=== PATIENT | male | born 1940 | race Caucasian/White ===

== ENCOUNTER 2022-05-06 20:07 | Inpatient (IN) | payer MEDICARE, OTHER ==
[~2022-05-06] VITALS: Ht 170.2 cm; Wt 62.6 kg
--- NOTE | 2022-05-06 20:25 | NUR ---
JOSE A FROM [facility] AT [facility]. PATIENT ALERT AND ORIENTED X2. IN GOWN AND IN BED 12 ON MONITOR AND POX, SITTER AT BEDSIDE. PATIENT WAITING FOR MD NGUYEN.
--- NOTE | 2022-05-06 20:35 | NUR ---
[facility] RECEIVING CLERK AT BEDSIDE
[2022-05-06] MEDS ORDERED: LIDOCAINE 2% JEL UROJET 10 ML MM ONE (21:07)
--- NOTE | 2022-05-06 21:11 | NUR ---
URINE COLLECTED AND SENT TO LAB
[2022-05-06 21:22] LABS: BASOPHILS % (AUTO) 0.4 % (0.0-2.0); EOSINOPHILS % (AUTO) 1.7 % (0.0-6.0); HEMATOCRIT 32 % (39-51); HEMOGLOBIN 10.9 g/dL (13.5-17.5); LYMPHOCYTES % (AUTO) 23.5 % (20.0-44.0); MEAN CORPUSCULAR HGB CONC 34 g/dl (31.0-36.0); MEAN CORPUSCULAR VOLUME 97 fL (80-96); MONOCYTES # (AUTO) 0.8 K/uL (0.1-1.30); MONOCYTES % (AUTO) 8.9 % (2.0-12.0); NEUTROPHILS # (AUTO) 5.5 K/uL (1.8-8.9); NEUTROPHILS % (AUTO) 65.5 % (43.0-81.0); PLATELET COUNT (AUTO) 222 K/uL (150-450); RED BLOOD CELL COUNT(AUTO) 3.31 MIL/uL (4.5-6.0); WHITE BLOOD COUNT (AUTO) 8.4 K/uL (4.3-11.0)
[2022-05-06 21:34] LABS: BILIRUBIN,URINE NEGATIVE (NEGATIVE); COLOR,URINE YELLOW (YELLOW); LEUKOCYTE ESTERASE ,URINE LARGE (NEGATIVE); NITRITE, URINE NEGATIVE (NEGATIVE); PH,URINE 7.5 (5.0-8.0); PROTEIN,URINE TRACE mg/dl (NEGATIVE); UGLUCOSE NEGATIVE (NEGATIVE); UROBILINOGEN,URINE 0.2 EU/dL (0.2)
[2022-05-06 21:41] LABS: CALCIUM, SERUM 8.9 mg/dL (8.5-10.1); CARBON DIOXIDE 33 mmol/L (21-32); CHLORIDE 105 mmol/L (98-107); CREATININE 1.2 mg/dL (0.6-1.3); GLUCOSE 103 mg/dL (74-106); POTASSIUM 4.2 mmol/L (3.5-5.1); SODIUM SERUM 141 mmol/L (136-145); UREA NITROGEN, BLOOD 32 mg/dL (7-18)
--- NOTE | 2022-05-06 21:42 | NUR ---
COVID SWAB DONE AND SENT TO LAB
[2022-05-06 21:44] LABS: BACTERIA,URINE 3+ /HPF (None Seen); WBC,URINE 81-100 /HPF (0-3)
[2022-05-06 21:45] LABS: ALANINE AMINOTRANSFERASE 32 U/L (12-78); ALBUMIN 3.1 g/dL (3.4-5.0); ALCOHOL, BLOOD < 3 mg/dL (0-0); ALKALINE PHOSPHATASE 49 U/L (46-116); ASPARTATE AMINOTRANSFERASE 26 U/L (15-37); BILIRUBIN,DIRECT 0.1 mg/dL (0.0-0.2); BILIRUBIN,TOTAL 0.2 mg/dL (0.2-1.0); TOTAL PROTEIN, SERUM 6.8 g/dL (6.4-8.2)
[2022-05-06] MEDS ORDERED: CIPROFLOXACIN IV RTU 200 ML IV ONE (21:59)
[2022-05-06] MEDS ORDERED: Z GUARD REMEDY 4 OZ OINT TP PRN (22:00)
[2022-05-06] MEDS ORDERED: ACETAMINOPHEN 325 MG TABLET PO PRN (22:00)
[2022-05-06] MEDS ORDERED: ZOLPIDEM TARTRATE 5 MG TABLET PO PRN (22:00)
[2022-05-06] MEDS ORDERED: MAG HYDROX/AL HYDROX/SIMETH 30 ML UDC PO PRN (22:00)
[2022-05-06] MEDS ORDERED: MAGNESIUM HYDROXIDE 30 ML UDC PO PRN (22:00)
[2022-05-06] MEDS ORDERED: ONDANSETRON HCL/PF 4 MG/2 ML VIAL IVP PRN (22:00)
[2022-05-06] MEDS ORDERED: DONE5TAB7 PO (22:04)
[2022-05-06] MEDS ORDERED: ASPI-1169 PO (22:04)
[2022-05-06] MEDS ORDERED: VALP250S4 PO (22:04)
[2022-05-06] MEDS ORDERED: AMLO-212 PO (22:04)
[2022-05-06] MEDS ORDERED: CHOL400T11 PO (22:04)
[2022-05-06] MEDS ORDERED: MELA3TAB41 PO (22:04)
[2022-05-06] MEDS ORDERED: ATOR40TA PO (22:04)
[2022-05-06] MEDS: CIPROFLOXACIN IV RTU 400 MG in PREMIX 1 EA IV SCH (22:05)
--- NOTE | 2022-05-06 22:06 | NUR ---
IV LINE ESTABLISHED, RAC20G
[2022-05-06] MEDS ORDERED: ACETAMINOPHEN 325 MG TABLET PO ONE (23:00)
--- NOTE | 2022-05-06 23:09 | NUR ---
GPS BED: 219A
[2022-05-06 23:17] LABS: IRON, SERUM 38 ug/dl (50-175); TOTAL IRON BINDING CAPACITY 265 ug/dl (250-450)
[2022-05-07] MEDS ORDERED: CEFTRIAXONE 0.5 G in IV D5W 50 ML IV SCH (00:56)
--- NOTE | 2022-05-07 00:57 | NUR ---
REPORT GIVEN TO GALEN ON THIRD FLOOR
[2022-05-07 01:00] VITALS: BP 139/79
--- NOTE | 2022-05-07 01:20 | NUR ---
PT TRANSPORTED TO [facility] VIA GURNEY IN STABLE CONDITION
--- NOTE | 2022-05-07 01:29 | NUR ---
Hesham lanier in [facility] - 05/07/22 at 0130 by [place] PT TRANSPORTED TO [facility] VIA WHEELCHAIR IN STABLE CONDITION
[2022-05-07] MEDS: IV NS 0.9% 1,000 ML IV PRN ×2 (01:33→17:28)
[2022-05-07] MEDS: DONEPEZIL 5 MG TABLET PO SCH ×2 (01:34→21:48)
[2022-05-07] MEDS: ENOXAPARIN SODIUM 40 MG/0.4 ML DISP.SYRIN SQ SCH ×2 (01:35→21:49)
[2022-05-07] MEDS: PHENAZOPYRIDINE HCL 200 MG TABLET PO SCH ×4 (01:37→16:15)
[2022-05-07] MEDS: CIPROFLOXACIN IV RTU 400 MG in PREMIX 1 EA IV SCH ×2 (01:53→22:52)
[2022-05-07] MEDS ORDERED: CEFTRIAXONE 1 G VIAL ONE (01:53)
[2022-05-07] MEDS: CEFTRIAXONE 1 G in IV D5W 50 ML IV SCH ×2 (01:54→21:47)
--- NOTE | 2022-05-07 07:30 | NUR ---
MS RN OPENING NOTES: RECEIVED PATIENT IN BED, AWAKE VERY CONFUSED. NO SOB OR CARDIAC DISTRESS NOTED. DENIES ANY PAIN AT THIS TIME. IV ACCESS ON RAC G 20, LFA G20 PATENT AND INTACT INFUSING NS @75ML/HR. PATIENT FORGETFUL NEEDS FREQUENT REORIENTATION. SAFETY MEASYURES MAINTAINED: BED LOCKED AND IN LOWEST POSITION, SIDE RAILS UP X 2. CALL LIGHT IN EASY REACH FOR HELP. WILL MONITOR ACCORDINGLY.
[2022-05-07 08:00] VITALS: BP_SYST 140; BP_SYST 152; BP_DIAS 78; BP_DIAS 80
[2022-05-07] MEDS: PANTOPRAZOLE 40 MG VIAL IV SCH (09:02)
[2022-05-07] MEDS: AMLODIPINE BESYLATE 5 MG TABLET PO SCH (09:03)
[2022-05-07] MEDS: ASPIRIN 81 MG TAB.CHEW PO SCH (09:03)
[2022-05-07 14:24] LABS: BASOPHILS % (AUTO) 0.1 % (0.0-2.0); HEMATOCRIT 39 % (39-51); HEMOGLOBIN 12.7 g/dL (13.5-17.5); LYMPHOCYTES # (AUTO) 0.5 K/uL (0.8-4.8); LYMPHOCYTES % (AUTO) 4.4 % (20.0-44.0); MEAN CORPUSCULAR HGB CONC 33 g/dl (31.0-36.0); MEAN CORPUSCULAR VOLUME 99 fL (80-96); MONOCYTES # (AUTO) 0.6 K/uL (0.1-1.30); MONOCYTES % (AUTO) 5.2 % (2.0-12.0); NEUTROPHILS # (AUTO) 10.4 K/uL (1.8-8.9); NEUTROPHILS % (AUTO) 90.3 % (43.0-81.0); PLATELET COUNT (AUTO) 215 K/uL (150-450); RED BLOOD CELL COUNT(AUTO) 3.95 MIL/uL (4.5-6.0); WHITE BLOOD COUNT (AUTO) 11.5 K/uL (4.3-11.0)
[2022-05-07 14:38] LABS: CALCIUM, SERUM 8.8 mg/dL (8.5-10.1); CARBON DIOXIDE 27 mmol/L (21-32); CHLORIDE 104 mmol/L (98-107); CREATININE 1.5 mg/dL (0.6-1.3); GLUCOSE 157 mg/dL (74-106); MAGNESIUM 2.1 mg/dL (1.8-2.4); PHOSPHORUS 3.1 mg/dL (2.5-4.9); SODIUM SERUM 140 mmol/L (136-145); UREA NITROGEN, BLOOD 27 mg/dL (7-18)
[2022-05-07 15:09] LABS: CHOLESTEROL 140 mg/dL (<200); HDL CHOLESTEROL 52 mg/dL (40-60); LDL 73 mg/dL (0-99); THYROID STIMULATING HORMONE 2.923 uIU/mL (0.358-3.74); TRIGLYCERIDES 45 mg/dL (30-150)
[2022-05-07 16:00] VITALS: BP 134/71
[2022-05-07 16:04] VITALS: BP 148/80
--- NOTE | 2022-05-07 18:50 | NUR ---
MS RN CLOSING NOTES: PATIENT IN BED, AWAKE. VERY CONFUSED AND FORGETFUL NEEDS FREQUENT REORIENTATION. OF NOW PATIENT CALM. NO SOB OR CARDIAC DISTRESS NOTED. IV ACCESS ON RAC G 20 , LFA G#20 PATENT AND INTACT AND SALINE LOCKED AND ON LFA INFUSING NS @75ML/HR.. SAFETY PRECAUTIONS MAINTAINED: BED LOCKED AND IN LOWEST POSITION, SIDERAILS UP X 2. CALL LIGHT IN EASY REACH FOR HELP. WILL MONITOR PT ACCORDINGLY. ENDORSED TO LEAVE COORDINATOR NURSE FOR CONTINUITY OF CARE.
--- NOTE | 2022-05-07 19:40 | NUR ---
MS RN OPENING NOTES RECEIVED PATIENT IN BED; AWAKE, ALERT AND ORIENTED X 1; CONFUSED; HARD OF HEARING. BREATHING EVEN AND NONLABORED. ON ROOM AIR; TOLERATING WELL. NOT IN ANY FORM OF RESPIRATORY DISTRESS. NO S/S OF PAIN OR DISCOMFORT NOTED. WITH IV ACCESS ON RIGHT ANTECUBITAL 20g; PATENT, INTACT AND SALINE LOCKED. LEFT FOREARM 22g: PATENT AND INTACT INFUSING WITH NS 1L REGULATED @ 75 ML/HR; FLUSHES WELL. NEEDS ANTICIPATED. SAFETY MEASURES IMPLEMENTED: CALL LIGHT AND TABLE WITHIN REACH, SIDE RAILS UP X2, BED IN LOWEST LOCKED POSITION. WILL CONTINUE TO MONITOR
[2022-05-07 20:00] VITALS: BP 121/90
[2022-05-07 21:01] VITALS: BP 121/90
[2022-05-08 06:53] LABS: BASOPHILS % (AUTO) 0.2 % (0.0-2.0); EOSINOPHILS % (AUTO) 0.1 % (0.0-6.0); HEMATOCRIT 34 % (39-51); HEMOGLOBIN 11.4 g/dL (13.5-17.5); LYMPHOCYTES # (AUTO) 1.5 K/uL (0.8-4.8); LYMPHOCYTES % (AUTO) 9.9 % (20.0-44.0); MEAN CORPUSCULAR HGB CONC 34 g/dl (31.0-36.0); MEAN CORPUSCULAR VOLUME 97 fL (80-96); MONOCYTES # (AUTO) 1.6 K/uL (0.1-1.30); MONOCYTES % (AUTO) 10.9 % (2.0-12.0); NEUTROPHILS # (AUTO) 11.7 K/uL (1.8-8.9); NEUTROPHILS % (AUTO) 78.9 % (43.0-81.0); PLATELET COUNT (AUTO) 220 K/uL (150-450); RED BLOOD CELL COUNT(AUTO) 3.52 MIL/uL (4.5-6.0); WHITE BLOOD COUNT (AUTO) 14.8 K/uL (4.3-11.0)
--- NOTE | 2022-05-08 07:00 | NUR ---
MS RN OPENING NOTES PATIENT LAYING IN BED, A/O X 1, ANGOON, TOLERATING WELL ON ROOM AIR WITH NO S/S RESPIRATORY DISTRESS. NO COMPLAINTS OF PAIN OR DISCOMFORT AT THIS TIME. R AC # 20 SL CLEAN, INTACT, AND FLUSHING WELL. L FA # 22 G IV CLEAN, INTACT, AND INFUSING NS @ 75 ML/HR. SAFETY MEASURES IN PLACE: BED IN LOWEST LOCKED POSITION, SIDE RAILS UP X 2, CALL LIGHT WITHIN REACH. WILL CONTINUE TO MONITOR.
[2022-05-08 07:05] LABS: CALCIUM, SERUM 8.4 mg/dL (8.5-10.1); CARBON DIOXIDE 24 mmol/L (21-32); CHLORIDE 106 mmol/L (98-107); CREATININE 2.8 mg/dL (0.6-1.3); GLUCOSE 124 mg/dL (74-106); MAGNESIUM 1.9 mg/dL (1.8-2.4); PHOSPHORUS 4.1 mg/dL (2.5-4.9); POTASSIUM 4.3 mmol/L (3.5-5.1); SODIUM SERUM 138 mmol/L (136-145); UREA NITROGEN, BLOOD 36 mg/dL (7-18)
--- NOTE | 2022-05-08 07:05 | NUR ---
MS RN CLOSING NOTES PATIENT LYING IN BED; AWAKE, ALERT AND ORIENTED X 1; HARD OF HEARING. STABLE ON ROOM AIR. RESPIRATION EVEN AND NONLABORED. IN NO ACUTE DISTRESS. NO S/S OF PAIN OR DISCOMFORT NOTED. IV ACCESS ON RAC 20g; PATENT, INTACT AND SALINE LOCKED. LFA 22g: PATENT AND INTACT INFUSING WITH NS 1L RUNNING @ 75 ML/HR; FLUSHING WELL. ALL NEEDS ATTENDED TO. SAFETY MEASURES MAINTAINED: CALL LIGHT AND TABLE WITHIN REACH, SIDE RAILS UP X2, BED IN LOWEST LOCKED POSITION. ENDORSED TO BILLY MAI FOR ALISA.
[2022-05-08] MEDS: AMLODIPINE BESYLATE 5 MG TABLET PO SCH (08:07)
[2022-05-08 08:27] VITALS: BP 100/61
[2022-05-08] MEDS: PANTOPRAZOLE 40 MG VIAL IV SCH (08:38)
[2022-05-08] MEDS: ASPIRIN 81 MG TAB.CHEW PO SCH (08:38)
[2022-05-08] MEDS: CIPROFLOXACIN IV RTU 400 MG in PREMIX 1 EA IV SCH ×2 (10:14→21:18)
[2022-05-08] MEDS ORDERED: LORAZEPAM INJ 2 MG/ML VIAL IV PRN (10:30)
--- NOTE | 2022-05-08 19:00 | NUR ---
MS RN NOTE IN/OUT CATHETER 15 FR INSERTED AND 200 ML OUTPUT NOTED. SPECIMEN CUP FILLED FOR URINALYSIS AND PLACED IN [place]ID[place], LAB NOTIFIED.
--- NOTE | 2022-05-08 19:59 | NUR ---
NEW ORDER TO INSERT CAUDE CATHETER, PATIENT HAS STANDING ORDER TO INSERT TERRAZAS CATHETER SECONDARY TO URINARY RETENTION, HAS HX OF PROSTATE CANCER, ADMITTED FOR UTI.
[2022-05-08 20:00] VITALS: BP 118/70
[2022-05-08 20:18] LABS: BILIRUBIN,URINE NEGATIVE (NEGATIVE); COLOR,URINE DARK YELLOW (YELLOW); LEUKOCYTE ESTERASE ,URINE LARGE (NEGATIVE); NITRITE, URINE POSITIVE (NEGATIVE); PH,URINE 6.5 (5.0-8.0); PROTEIN,URINE 30 mg/dl (NEGATIVE); UGLUCOSE 100 MG/DL mg/dL (NEGATIVE)
[2022-05-08 20:28] LABS: BACTERIA,URINE 2+ /HPF (None Seen); RBC,URINE 51-80 /HPF (0-2); SQUAMOUS EPITHELIAL CELL,UR 0-2 /HPF (None Seen); WBC,URINE 51-80 /HPF (0-3)
--- NOTE | 2022-05-08 20:28 | NUR ---
PATIENT IN BED, ALERT/ORIENTED X1, CONFUSED, ROOM AIR, NOT IN APPARENT PAIN, DX UTI, HX OF PROSTATE CANCER, CURRENTLY URINARY RETENTION. CAUDE INSERTED, NO BLEEDING, TEA COLORED URINE. BILATERAL WRIST RESTRAINTS, IVF RUNNING, KEPT SAFE, WILL CONTINUE TO MONITOR.
[2022-05-08] MEDS: CEFTRIAXONE 1 G in IV D5W 50 ML IV SCH (21:19)
[2022-05-08] MEDS: ENOXAPARIN SODIUM 40 MG/0.4 ML DISP.SYRIN SQ SCH (21:44)
[2022-05-08] MEDS: DONEPEZIL 5 MG TABLET PO SCH (22:08)
[2022-05-09 06:00] LABS: BASOPHILS % (AUTO) 0.2 % (0.0-2.0); EOSINOPHILS % (AUTO) 0.5 % (0.0-6.0); HEMATOCRIT 30 % (39-51); HEMOGLOBIN 10.2 g/dL (13.5-17.5); LYMPHOCYTES # (AUTO) 1.5 K/uL (0.8-4.8); LYMPHOCYTES % (AUTO) 13.6 % (20.0-44.0); MEAN CORPUSCULAR HGB CONC 34 g/dl (31.0-36.0); MEAN CORPUSCULAR VOLUME 98 fL (80-96); MONOCYTES # (AUTO) 1.3 K/uL (0.1-1.30); MONOCYTES % (AUTO) 11.8 % (2.0-12.0); NEUTROPHILS # (AUTO) 8.1 K/uL (1.8-8.9); NEUTROPHILS % (AUTO) 73.9 % (43.0-81.0); PLATELET COUNT (AUTO) 197 K/uL (150-450); RED BLOOD CELL COUNT(AUTO) 3.11 MIL/uL (4.5-6.0); WHITE BLOOD COUNT (AUTO) 10.9 K/uL (4.3-11.0)
[2022-05-09 06:31] LABS: CREATINE KINASE, TOTAL 308 U/L (39-308)
[2022-05-09 06:43] LABS: CALCIUM, SERUM 7.8 mg/dL (8.5-10.1); CARBON DIOXIDE 27 mmol/L (21-32); CHLORIDE 109 mmol/L (98-107); CREATININE 1.8 mg/dL (0.6-1.3); GLUCOSE 101 mg/dL (74-106); MAGNESIUM 1.9 mg/dL (1.8-2.4); PHOSPHORUS 3.7 mg/dL (2.5-4.9); POTASSIUM 3.8 mmol/L (3.5-5.1); SODIUM SERUM 141 mmol/L (136-145); UREA NITROGEN, BLOOD 34 mg/dL (7-18)
--- NOTE | 2022-05-09 06:45 | NUR ---
PATIENT COMBATIVE DURING HYGIENE CARE, SUSTAINED LEFT INDEX FINGER SKIN TEAR, CLEANSE WITH ALCOHOL, BAND AID, PHOTO TAKEN, WOUND CONSULT.
--- NOTE | 2022-05-09 07:00 | NUR ---
MS RN OPENING NOTES PATIENT LAYING IN BED, A/O X 1, BISHOP PAIUTE, TOLERATING WELL ON ROOM AIR WITH NO S/S RESPIRATORY DISTRESS. NO COMPLAINTS OF PAIN OR DISCOMFORT AT THIS TIME. R AC # 20 SL CLEAN, INTACT, AND AND INFUSING NS @ 75 ML/HR. L FA # 22 G IV CLEAN, INTACT, AND FLUSHING WELL. 14 FR TERRAZAS CATHETER IN PLACE DRAINING TEA COLORED URINE TO GRAVITY. SAFETY MEASURES IN PLACE: BED IN LOWEST LOCKED POSITION, SIDE RAILS UP X 2, CALL LIGHT WITHIN REACH. WILL CONTINUE TO MONITOR.
[2022-05-09] MEDS: PANTOPRAZOLE 40 MG TABLET.DR PO SCH (07:11)
[2022-05-09] MEDS: IV NS 0.9% 1,000 ML IV PRN (07:17)
[2022-05-09 08:00] VITALS: BP 115/82
[2022-05-09] MEDS: ASPIRIN 81 MG TAB.CHEW PO SCH (08:44)
[2022-05-09] MEDS: AMLODIPINE BESYLATE 5 MG TABLET PO SCH (08:45)
[2022-05-09 16:00] VITALS: BP 132/68
--- NOTE | 2022-05-09 18:58 | NUR ---
MS RN CLOSING NOTES PATIENT LAYING IN BED, A/O X 1, LITTLE TRAVERSE, TOLERATING WELL ON ROOM AIR WITH NO S/S RESPIRATORY DISTRESS. NO COMPLAINTS OF PAIN OR DISCOMFORT AT THIS TIME. L AC # 22 G IV CLEAN, INTACT, AND AND INFUSING NS @ 75 ML/HR. 14 FR TERRAZAS CATHETER IN PLACE DRAINING TEA COLORED URINE TO GRAVITY. SAFETY MEASURES IN PLACE: BED IN LOWEST LOCKED POSITION, SIDE RAILS UP X 2, CALL LIGHT WITHIN REACH. ALL NEEDS MET. WILL ENDORSE TO FLEET COORDINATOR FOR ALISA.
[2022-05-09 20:00] VITALS: BP 101/48
--- NOTE | 2022-05-09 20:29 | NUR ---
RN OPENING NOTE PATIENT AWAKE IN BED. A/OX1. NO S/S OF DISTRESS, BREATHING WITHOUT DIFFICULT ON ROOM AIR. LFA #22 INTACT AND PATENT NS 75ML/HR; RAC #20 SL INTACT AND PATENT. SAFETY MEASURES IN PLACE: BED LOCKED AT LOWEST LEVEL, RAILS UP X2, CALL [place] WITHIN REACH. WILL CONTINUE TO MONITOR PATIENT.
[2022-05-09] MEDS: DONEPEZIL 5 MG TABLET PO SCH (21:04)
[2022-05-09] MEDS: CEFTRIAXONE 1 G in IV D5W 50 ML IV SCH (21:04)
[2022-05-09] MEDS: ENOXAPARIN SODIUM 40 MG/0.4 ML DISP.SYRIN SQ SCH (21:04)
[2022-05-10] MEDS: IV NS 0.9% 1,000 ML IV PRN (05:25)
--- NOTE | 2022-05-10 06:47 | NUR ---
RN CLOSING NOTE PATIENT ASLEEP IN BED. A/OX1. NO S/S OF DISTRESS, BREATHING WITHOUT DIFFICULTY ON ROOM AIR. LFA #22 INTACT AND PATENT W/ NS 75ML/HR. BED LOCKED AT LOWEST POSITION, RAILS UP X2, CALL [place]GF[place] WITHIN REACH. WILL ENDORSE TO NEXT SHIFT FOR ALISA.
[2022-05-10 07:15] LABS: BASOPHILS % (AUTO) 0.3 % (0.0-2.0); EOSINOPHILS % (AUTO) 4.6 % (0.0-6.0); HEMATOCRIT 32 % (39-51); HEMOGLOBIN 10.9 g/dL (13.5-17.5); LYMPHOCYTES # (AUTO) 1.9 K/uL (0.8-4.8); LYMPHOCYTES % (AUTO) 21.4 % (20.0-44.0); MEAN CORPUSCULAR HGB CONC 34 g/dl (31.0-36.0); MEAN CORPUSCULAR VOLUME 98 fL (80-96); MONOCYTES % (AUTO) 11.1 % (2.0-12.0); NEUTROPHILS # (AUTO) 5.4 K/uL (1.8-8.9); NEUTROPHILS % (AUTO) 62.6 % (43.0-81.0); PLATELET COUNT (AUTO) 201 K/uL (150-450); RED BLOOD CELL COUNT(AUTO) 3.31 MIL/uL (4.5-6.0); WHITE BLOOD COUNT (AUTO) 8.7 K/uL (4.3-11.0)
--- NOTE | 2022-05-10 07:15 | NUR ---
MS RN OPENING NOTES: RECEIVED PATIENT IN BED, AWAKE VERY CONFUSED. NO SOB OR CARDIAC DISTRESS NOTED. DENIES ANY PAIN AT THIS TIME. NOTED WITH RIGHT ARM SOFT RESTRAINT, WITH GOOD CIRCULATION,ABLE TO MOVE HAND/FINGERS FREELY. IV ACCESS ON LFA G 20, LFA G22 PATENT AND INTACT INFUSING NS @75ML/HR. PATIENT FORGETFUL NEEDS FREQUENT REORIENTATION.TERRAZAS CATHETER NOTED DRAINING YELLOW COLORED URINE BY GRAVITY. SAFETY MEASURES MAINTAINED: BED LOCKED AND IN LOWEST POSITION, SIDE RAILS UP X 2. CALL LIGHT IN EASY REACH FOR HELP. WILL MONITOR ACCORDINGLY.
[2022-05-10] MEDS: PANTOPRAZOLE 40 MG TABLET.DR PO SCH (07:26)
[2022-05-10 08:00] VITALS: BP 122/64
[2022-05-10 08:22] LABS: CALCIUM, SERUM 8.2 mg/dL (8.5-10.1); POTASSIUM 3.5 mmol/L (3.5-5.1)
[2022-05-10] MEDS: AMLODIPINE BESYLATE 5 MG TABLET PO SCH (08:32)
[2022-05-10] MEDS: ASPIRIN 81 MG TAB.CHEW PO SCH (08:32)
[2022-05-10] MEDS ORDERED: CEPH500C2 PO (14:48)
[2022-05-10 16:00] VITALS: BP 125/59
--- NOTE | 2022-05-10 19:05 | NUR ---
LOCUM TENENS PSYCHIATRIST NOTES: PATIENT DC TO [facility] ACCOMPANIED BY 2 PARAMEDICS VIA GURNEY. PATIENT AWAKE BUT CONFUSED. NO SOB OR CARDIAC DISTRESS NOTED, DENIES ANY PAIN AT THIS TIME. REMOVED IV ACCESS. REPORT GIVEN TO PAU GOODE. IDENTIFICATION BAND KEPT IN PLACE. PATIENT LEFT THE UNIT STABLE.ALL BELONGINGS CARRIED WITH THE RESIDENT.
== END 2022-05-10 19:05 | DRG 689 ==
LOC: ER 20:12 → MED 05-07 00:45
PROVIDERS: ADMIT Nurse Practitioner Acute Care; ATTEND Student in an Organized Health Care Education/Training Program
DX: N39.0 Urinary tract infection, site not specified (principal); E43 Unspecified severe protein-calorie malnutrition; G93.41 Metabolic encephalopathy; N17.0 Acute kidney failure with tubular necrosis; F03.91 Unspecified dementia, unspecified severity, with behavioral disturbance; I25.10 Atherosclerotic heart disease of native coronary artery without angina pectoris; E78.5 Hyperlipidemia, unspecified; E86.0 Dehydration; I10 Essential (primary) hypertension; Z79.82 Long term (current) use of aspirin; E88.09 Other disorders of plasma-protein metabolism, not elsewhere classified; F41.9 Anxiety disorder, unspecified; M81.0 Age-related osteoporosis without current pathological fracture; F32.A Depression, unspecified; D63.8 Anemia in other chronic diseases classified elsewhere; B96.89 Other specified bacterial agents as the cause of diseases classified elsewhere; Z20.822 Contact with and (suspected) exposure to COVID-19; R53.1 Weakness; R29.6 Repeated falls
CPT/HCPCS: 36415; 71045-TC; 76770-TC; 80048-TC; 80061-TC; 80076-TC; 81001; 82550-TC; 82553; 83540-TC; 83735-TC; 84100-TC; 84443-TC; 84484-TC; 85025-TC; 87081-TC; 87086-TC; 97116-TC; 97530-TC; A4216; C9113; C9803; G0378; G0480; J0696; J0744; J1650; J2060; J3490; J7030; J7060

== ENCOUNTER 2022-11-11 16:39 | Inpatient (IN) | payer MEDICARE, OTHER ==
[~2022-11-11] VITALS: Ht 167.6 cm; Wt 65.3 kg
[~2022-11-11 16:39] MED LIST: AMLO-212 PO; ASPI-1169 PO; ATOR40TA PO; CEPH500C2 PO; CHOL400T11 PO; DONE5TAB7 PO; MELA3TAB41 PO; VALP250S4 PO
--- NOTE | 2022-11-11 17:13 | NUR ---
BLOOD DRAWN AND SENT TO LAB
--- NOTE | 2022-11-11 17:13 | NUR ---
iv established. L UA 20G
--- NOTE | 2022-11-11 18:00 | NUR ---
URINE COLLECTED AND SENT TO LAB
[2022-11-11 18:05] LABS: BASOPHILS # (AUTO) 0.1 K/uL (0.0-0.2); EOSINOPHILS % (AUTO) 4.1 % (0.0-6.0); HEMATOCRIT 35 % (39-51); HEMOGLOBIN 11.6 g/dL (13.5-17.5); LYMPHOCYTES # (AUTO) 2.7 K/uL (0.8-4.8); LYMPHOCYTES % (AUTO) 31.1 % (20.0-44.0); MEAN CORPUSCULAR HGB CONC 33 g/dl (31.0-36.0); MEAN CORPUSCULAR VOLUME 97 fL (80-96); MONOCYTES # (AUTO) 0.8 K/uL (0.1-1.30); MONOCYTES % (AUTO) 8.9 % (2.0-12.0); NEUTROPHILS # (AUTO) 4.8 K/uL (1.8-8.9); NEUTROPHILS % (AUTO) 54.9 % (43.0-81.0); PLATELET COUNT (AUTO) 287 K/uL (150-450); RED BLOOD CELL COUNT(AUTO) 3.64 MIL/uL (4.5-6.0); WHITE BLOOD COUNT (AUTO) 8.7 K/uL (4.3-11.0)
[2022-11-11 18:27] LABS: CALCIUM, SERUM 9.4 mg/dL (8.5-10.1); CARBON DIOXIDE 33 mmol/L (21-32); CHLORIDE 106 mmol/L (98-107); CREATININE 1.2 mg/dL (0.6-1.3); GLUCOSE 97 mg/dL (74-106); POTASSIUM 4.4 mmol/L (3.5-5.1); SODIUM SERUM 142 mmol/L (136-145); UREA NITROGEN, BLOOD 36 mg/dL (7-18)
--- NOTE | 2022-11-11 18:27 | NUR ---
COVID SWAB COLLECTED AND SENT TO LAB
[2022-11-11] MEDS ORDERED: ACET-868 PO (18:30)
[2022-11-11] MEDS ORDERED: OMEP40CA21 PO (18:30)
[2022-11-11] MEDS ORDERED: BISA10SU11 RC (18:30)
[2022-11-11] MEDS ORDERED: NITR0.4T48 SL (18:30)
[2022-11-11] MEDS ORDERED: ONDA4TAB5 PO (18:30)
[2022-11-11] MEDS ORDERED: MULT-447 PO (18:30)
[2022-11-11] MEDS ORDERED: ASCO-352 PO (18:30)
[2022-11-11] MEDS ORDERED: LEUP7.5S2 SQ (18:30)
[2022-11-11] MEDS ORDERED: AMIN30LI2 PO (18:30)
[2022-11-11] MEDS ORDERED: MAGN400O6 PO (18:30)
[2022-11-11] MEDS ORDERED: LORA-259 PO (18:30)
[2022-11-11] MEDS ORDERED: NA P133E RC (18:30)
[2022-11-11] MEDS ORDERED: CLON0.5T PO (18:30)
[2022-11-11 18:49] LABS: BILIRUBIN,URINE NEGATIVE (NEGATIVE); COLOR,URINE YELLOW (YELLOW); LEUKOCYTE ESTERASE ,URINE 3+ (NEGATIVE); NITRITE, URINE NEGATIVE (NEGATIVE); PH,URINE 8.5 (5.0-8.0); PROTEIN,URINE 1+ mg/dl (NEGATIVE); UGLUCOSE NEGATIVE (NEGATIVE); UROBILINOGEN,URINE 0.2 EU/dL (0.2)
[2022-11-11 18:49] LABS: ALANINE AMINOTRANSFERASE 33 U/L (12-78); ALBUMIN 3.2 g/dL (3.4-5.0); ALCOHOL, BLOOD < 3 mg/dL (0-0); ALKALINE PHOSPHATASE 59 U/L (46-116); ASPARTATE AMINOTRANSFERASE 29 U/L (15-37); BILIRUBIN,DIRECT 0.1 mg/dL (0.0-0.2); BILIRUBIN,TOTAL 0.1 mg/dL (0.2-1.0); TOTAL PROTEIN, SERUM 7.5 g/dL (6.4-8.2)
[2022-11-11 18:50] LABS: ACETAMINOPHEN 0 ug/ml (10-30)
--- NOTE | 2022-11-11 18:50 | NUR ---
MOVE SHEET SUBMITTED.
[2022-11-11 18:53] LABS: BACTERIA,URINE Many /HPF (None Seen); WBC,URINE 21-50 /HPF (0-3)
[2022-11-11 18:54] LABS: SQUAMOUS EPITHELIAL CELL,UR Few /HPF (None Seen)
[2022-11-11 18:55] LABS: URINE AMORPHOUS URATE Many /HPF (None Seen)
--- NOTE | 2022-11-11 19:05 | NUR ---
REC'D REPORT FROM PAU VERNON FOR ALISA
--- NOTE | 2022-11-11 19:16 | NUR ---
REPORT GIVEN TO AMIE FOR CONTINUATION OF CARE
--- NOTE | 2022-11-11 20:10 | NUR ---
APOLINAR- CRISIS TEAM PAGED.
[2022-11-11] MEDS ORDERED: CEFTRIAXONE 1GM BAG (ER ONLY) 1 GM/50 ML PIGGYBACK IV ONE (21:00)
--- NOTE | 2022-11-11 23:16 | NUR ---
GAVE REPORT TO PAU SALGADO FOR ALISA
--- NOTE | 2022-11-11 23:30 | NUR ---
PT TO [facility] [place].
[2022-11-12] MEDS ORDERED: BLOOD SUGAR DIAGNOSTIC 1 EACH STRIP IN ONE
[2022-11-12] MEDS ORDERED: MAG HYDROX/AL HYDROX/SIMETH 30 ML UDC PO PRN
--- NOTE | 2022-11-12 00:15 | NUR ---
GPS RN ADMITTING NOTE RECEIVED REPORT FROM AMIE. PATIENT WAS TRANSFERRED FROM ER TO GPS AT 2335H; ADMITTED A 81 Y/O MALE WHO CAME [facility] DUE TO INCREASED AGITATION AND COMBATIVE TOWARDS STAFF; ADMITTED ON A 5150 HOLD FOR DTO; UPON TRANSFER, PATIENT APPEARED TO BE AGITATED, WAS RELUCTANT TO BE TOUCHED AT FIRST AND TENDS TO GRASP HANDS, BUT NO COMBATIVE BEHAVIORS NOTED; SKIN ASSESSMENT WAS DONE AND PRESENCE OF ABRASION ON NOSE AREA AND SKIN TEAR ON RIGHT HAND WERE NOTED, PHOTOGRAPHED AND INSERTED INTO CHART; ALL BELONGINGS WERE SCREENED FOR CONTRABAND; PATIENT IS UNABLE TO SIGN ALL FORMS DUE TO CONFUSION; PATIENT'S RIGHTS WERE DISCUSSED AND BOOKLET WAS GIVEN; CONTACTED DR GRIJALVA AND NEVIN ZAMBRANO AND INFORMED PATIENT'S ADMISSION; SAFETY MEASURES IMPLEMENTED, BED IN LOW AND LOCKED POSITION, SIDE RAILS UP X 3; WILL CONTINUE TO MONITOR EVERY 15 MINUTES FOR PATIENT'S MOOD, SAFETY AND BEHAVIOR.
--- NOTE | 2022-11-12 00:20 | NUR ---
GPS RN NOTE PATIENT ADMITTED FROM ER WITH TERRAZAS CATHETER IN PLACE AND CALLED NEVIN ZAMBRANO. NEVIN ZAMBRANO ORDERED TO D/C TERRAZAS CATHETER AND TO DO BLADDER SCAN IN AM. WILL CONTINUE TO MONITOR
--- NOTE | 2022-11-12 00:30 | NUR ---
GPS RN NOTE TERRAZAS CATHETER REMOVED; WILL CONTINUE TO MONITOR PATIENT
[2022-11-12 01:15] VITALS: BP 157/97
[2022-11-12] MEDS: TEMAZEPAM 7.5 MG CAPSULE PO PRN ×2 (02:44→21:56)
--- NOTE | 2022-11-12 06:25 | NUR ---
GPS RN NOTE PATIENT STILL HAS NO URINE OUTPUT AT THIS TIME; UPON ASSESSMENT, NO DISTENTION WAS NOTED AND BLADDER SCAN WAS DONE WITH 115 ML OUTPUT. NEVIN ZAMBRANO MADE AWARE.
[2022-11-12 08:00] VITALS: BP 123/68
[2022-11-12 08:13] LABS: CHOLESTEROL 202 mg/dL (<200); HDL CHOLESTEROL 36 mg/dL (40-60); LDL 141 mg/dL (0-99); TRIGLYCERIDES 149 mg/dL (30-150)
[2022-11-12 08:16] LABS: ALANINE AMINOTRANSFERASE 39 U/L (12-78); ALBUMIN 2.9 g/dL (3.4-5.0); ALKALINE PHOSPHATASE 61 U/L (46-116); ASPARTATE AMINOTRANSFERASE 32 U/L (15-37); BILIRUBIN,TOTAL 0.2 mg/dL (0.2-1.0); CALCIUM, SERUM 9.2 mg/dL (8.5-10.1); CARBON DIOXIDE 31 mmol/L (21-32); CHLORIDE 105 mmol/L (98-107); CREATININE 1.1 mg/dL (0.6-1.3); GLUCOSE 94 mg/dL (74-106); POTASSIUM 4.2 mmol/L (3.5-5.1); SODIUM SERUM 141 mmol/L (136-145); TOTAL PROTEIN, SERUM 7.2 g/dL (6.4-8.2); UREA NITROGEN, BLOOD 29 mg/dL (7-18)
--- NOTE | 2022-11-12 09:38 | NUR ---
WINSTON Initial Discharge Plan: Patient currently resides at [facility] located at [address] [place], [place] [id number] . WINSTON spoke with David alvarado who stated that pt is welcomed back. WINSTON will contact pt's son Antonino ([phone]) to gather collateral and discuss treatment/discharge plan. WINSTON will work with the MD, family, and pt to help coordinate appropriate discharge.
--- NOTE | 2022-11-12 09:39 | NUR ---
Treatment Plan: Pt refused to sign treatment plan and was labile/aggressive. Pt is confused.
--- NOTE | 2022-11-12 09:39 | NUR ---
WINSTON Clinical Note: Pt placed on a 5150 hold for danger to others and GD. Per hold, pt was aggressive with staff at the facility. Patient currently resides at [facility] located at [address] [place] [address] . WINSTON spoke with David alvarado who stated that pt is welcomed back. WINSTON will contact pt's son Antonino ([phone]) to gather collateral and discuss treatment/discharge plan.
[2022-11-12] MEDS ORDERED: BISACODYL SUPP (10 MG) 10 MG/SUPP.RECT SUPP.RECT RC PRN (10:30)
[2022-11-12] MEDS ORDERED: ACETAMINOPHEN 325 MG TABLET PO PRN ×2 (10:30)
[2022-11-12] MEDS ORDERED: MAGNESIUM HYDROXIDE 30 ML UDC PO PRN ×2 (10:30)
[2022-11-12] MEDS ORDERED: NITROGLYCERIN 0.4 MG/TAB BOTTLE SL PRN (10:30)
--- NOTE | 2022-11-12 10:53 | NUR ---
WOUND CARE CONSULT: PT AGITATED AT TIMES. RT ARM SKIN TEAR AND DRY ABRASION TO NOSE NOTED TO BE PRESENT ON ADMISSION. RECOMMENDATIONS MADE FOR SKIN PROTECTION AND WOUND CARE. DISCUSSED WITH NURSING STAFF. MD IN AGREEMENT WITH PLAN OF CARE.
[2022-11-12] MEDS: PROSOURCE / PROSTAT (PYXIS) 30 ML UDC PO SCH (11:07)
[2022-11-12] MEDS: PANTOPRAZOLE 40 MG TABLET.DR PO SCH (11:12)
[2022-11-12] MEDS: MULTIVIT W/MINERALS 1 TAB TABLET PO SCH (11:12)
[2022-11-12] MEDS: LORAZEPAM 0.5 MG TABLET PO PRN (11:12)
--- NOTE | 2022-11-12 11:12 | NUR ---
RN- NOTES ATIVAN GIVEN DUE TO INCREASED AGITATION, FREQUENTLY YELLING PROFANITIES AT STAFF.
[2022-11-12] MEDS: DIVALPROEX SODIUM 125 MG CAP.SPRINK PO SCH ×2 (12:05→17:07)
[2022-11-12] MEDS ORDERED: ONDANSETRON HCL 4 MG/5 ML SOLUTION PO PRN (12:30)
--- NOTE | 2022-11-12 13:10 | NUR ---
WINSTON Family Contact: SW contacted pt's son Antonino ([phone]) and discussed treatment/discharge. Son stated he would want pt back to [facility] when stable.
[2022-11-12 16:00] VITALS: BP 126/71
--- NOTE | 2022-11-12 19:32 | NUR ---
GPS FRUIT PICKER NOTE: RCVD PT AWAKE AND CALM, IN THE HALLWAY, SITTING IN PATRICK -CHAIR , BREATHING EVEN AND UNLABORED, NO S/SX OF RES. DISTRESS OR DISCOMFORT AT THIS TIME. WILL CONT TO MONITOR PT'S SAFETY AND ANTICIPATE NEEDS.
[2022-11-12 20:24] VITALS: BP 115/72
--- NOTE | 2022-11-12 21:56 | NUR ---
GPS TUFTING MACHINE OPERATOR SINGLE NEEDLE NOTE: PT WIDE AWAKE, PRN RESTORIL 7.5 MG /CAP FOR INSOMNIA GIVEN ORDERED. PT KEPT CLEAN AND DRY. CONTINUE TO MONITOR PT'S SAFETY AND COMFORT.
--- NOTE | 2022-11-12 22:53 | NUR ---
GPS LOG HAULER NOTE PT REMAINS AWAKE, APPEARS DOSING, APPEARS SLEEPY. BREATHING EVEN AND UNLABORED. WILL CONT Q 15 MINS TO MONITOR PT'S BEHAVIOR AND SAFETY. CONT TO ANTICIPATE NEEDS.
--- NOTE | 2022-11-13 00:52 | NUR ---
GPS EMPLOYEE COMMUNICATIONS SPECIALIST NOTE PT TRANSFERRED FROM PATRICK CHAIR BACK TO HIS BED, FLIGHT CREW TIME CLERK AND EMPLOYEE COMMUNICATIONS SPECIALIST PROVIDED PT'S PM CARE, AND GOOD RHINA CARE. PT APPEARS CLEAN AND COMFORTABLE IN BED, BED ALARM ON, SAFETY MEASURES OBSERVED. WILL CONTINUE TO MONITOR Q 15 MINS PT'S BEHAVIOR AND SAFETY.
--- NOTE | 2022-11-13 03:16 | NUR ---
GPS EMBOSSING UNIT OPERATOR NOTE PT SLEEPING, EASY TO AROUSE, NO S/SX OF RESP.DISTRESS. CONT TO MONITOR Q15 MINS - BEHAVIOR AND SAFETY.
--- NOTE | 2022-11-13 06:03 | NUR ---
GPS TRAINING DEVELOPMENT SPECIALIST NOTE PT STILL SLEEPING AT THIS TIME, EASY TO AROUSE. NO S/SX OF RESP.DISTRESS, AM CARE PROVIDED BY VP SECURITY & TRAINING DEVELOPMENT SPECIALIST, TOLERATED WELL BY PT. TOLERATED HIS MEDS DURING SHIFT. SAFETY MEASURES OBSERVED. WILL ENDORSE CONTINUITY OF CARE TO AM ONCOMING NURSE.
[2022-11-13 07:57] LABS: BASOPHILS # (AUTO) 0.1 K/uL (0.0-0.2); BASOPHILS % (AUTO) 0.7 % (0.0-2.0); EOSINOPHILS % (AUTO) 5.3 % (0.0-6.0); HEMATOCRIT 33 % (39-51); HEMOGLOBIN 10.8 g/dL (13.5-17.5); LYMPHOCYTES # (AUTO) 2.1 K/uL (0.8-4.8); LYMPHOCYTES % (AUTO) 22.9 % (20.0-44.0); MEAN CORPUSCULAR HGB CONC 33 g/dl (31.0-36.0); MEAN CORPUSCULAR VOLUME 97 fL (80-96); MONOCYTES % (AUTO) 10.9 % (2.0-12.0); NEUTROPHILS # (AUTO) 5.4 K/uL (1.8-8.9); NEUTROPHILS % (AUTO) 60.2 % (43.0-81.0); PLATELET COUNT (AUTO) 238 K/uL (150-450); RED BLOOD CELL COUNT(AUTO) 3.35 MIL/uL (4.5-6.0)
[2022-11-13 08:00] VITALS: BP 125/78
[2022-11-13 08:25] LABS: ALANINE AMINOTRANSFERASE 33 U/L (12-78); ALBUMIN 2.8 g/dL (3.4-5.0); ALKALINE PHOSPHATASE 57 U/L (46-116); ASPARTATE AMINOTRANSFERASE 26 U/L (15-37); BILIRUBIN,TOTAL 0.3 mg/dL (0.2-1.0); CALCIUM, SERUM 8.9 mg/dL (8.5-10.1); CARBON DIOXIDE 30 mmol/L (21-32); CHLORIDE 106 mmol/L (98-107); CREATININE 1.1 mg/dL (0.6-1.3); GLUCOSE 103 mg/dL (74-106); POTASSIUM 4.5 mmol/L (3.5-5.1); SODIUM SERUM 142 mmol/L (136-145); TOTAL PROTEIN, SERUM 6.8 g/dL (6.4-8.2); UREA NITROGEN, BLOOD 37 mg/dL (7-18)
[2022-11-13] MEDS: ASCORBIC ACID 500 MG TABLET PO SCH (08:52)
[2022-11-13] MEDS: DONEPEZIL 5 MG TABLET PO SCH (08:52)
[2022-11-13] MEDS: ASPIRIN 81 MG TAB.CHEW PO SCH (08:52)
[2022-11-13] MEDS: DIVALPROEX SODIUM 125 MG CAP.SPRINK PO SCH ×2 (08:52→17:16)
[2022-11-13] MEDS: MULTIVIT W/MINERALS 1 TAB TABLET PO SCH (08:52)
[2022-11-13] MEDS: PANTOPRAZOLE 40 MG TABLET.DR PO SCH (08:52)
[2022-11-13] MEDS: PROSOURCE / PROSTAT (PYXIS) 30 ML UDC PO SCH (08:53)
[2022-11-13 16:00] VITALS: BP 113/72
[2022-11-13] MEDS: LORAZEPAM 0.5 MG TABLET PO PRN (17:26)
--- NOTE | 2022-11-13 19:52 | NUR ---
RN NOTES: PATIENT SITTING UP IN PATRICK CHAIR,A/OX1 BREATHING EVEN AND UNLABORED WITH NO S/S OF DISTRESS. PATIENT IS ANXIOUS, GUARDED, PARNOID, HYPERVERBAL ,CONFUSED FORGETFUL , UNCCOPERTIVE ,SCREAMING,REFUSED GO BACK TO BED , NONREDIRECTABLE , BANGING ON THE PATRICK CHAIR TABLE ,HIGH FALL RISKS PATIENT IS MEDICATION COMPLIANT. ENCOURAGED PATIENT TO VERBALIZED ANY FEELING OR CONCERN . DENIES SI/HI AND AUDITORY/VISUAL HALLUCINATIONS AT THIS TIME. WILL CONTINUE TO MONITOR Q 15 MINUTES FOR SAFETY AND BEHAVIOR.
[2022-11-13 20:00] VITALS: BP 112/84
[2022-11-13] MEDS: CEPHALEXIN MONOHYDRATE 500 MG CAPSULE PO SCH (20:33)
[2022-11-14] MEDS: Z GUARD REMEDY 4 OZ OINT TP PRN (05:08)
--- NOTE | 2022-11-14 05:48 | NUR ---
RN NOTES: PATIENT RESTING IN ROOM AND 8 HOURS OF SLEEP NO S/SX OF ACUTE DISTRESS NOTED. PATIENT EASILY AGITATED,PARANOID,DISORGNIZED, HYPERVERBAL, FORGETFUL ,CONFUSED ,MED COMPLIANT , COOPERATIVE TO CARE.ALL NEEDS ATTENDED AND ANTICIPATED, NEEDS FREQUENTLY REDIRECTIONS, DENIES SI/HI/AVH AT THIS TIME. SAFETY PRECAUTIONS MAINTAINED. ENCOURAGED TO VERBALIZED ANY FEELING OR CONCERN ,WILL CONTINUE TO MONITOR Q15MIN ROUNDS FOR SAFETY AND BEHAVIOR.
[2022-11-14 08:00] VITALS: BP 139/90
[2022-11-14] MEDS: PROSOURCE / PROSTAT (PYXIS) 30 ML UDC PO SCH (09:11)
[2022-11-14] MEDS: CEPHALEXIN MONOHYDRATE 500 MG CAPSULE PO SCH ×2 (09:14→20:26)
[2022-11-14] MEDS: DONEPEZIL 5 MG TABLET PO SCH (09:14)
[2022-11-14] MEDS: PANTOPRAZOLE 40 MG TABLET.DR PO SCH (09:14)
[2022-11-14] MEDS: ASCORBIC ACID 500 MG TABLET PO SCH (09:14)
[2022-11-14] MEDS: MULTIVIT W/MINERALS 1 TAB TABLET PO SCH (09:14)
[2022-11-14] MEDS: DIVALPROEX SODIUM 125 MG CAP.SPRINK PO SCH ×2 (09:15→17:15)
[2022-11-14] MEDS: ASPIRIN 81 MG TAB.CHEW PO SCH (09:15)
[2022-11-14 16:00] VITALS: BP 120/66
--- NOTE | 2022-11-14 19:50 | NUR ---
RN NOTES: PATIENT RESTING HIS ROOM,A/OX1 BREATHING EVEN AND UNLABORED WITH NO S/S OF DISTRESS. PATIENT IS ANXIOUS, GUARDED, PARNOID, HYPERVERBAL ,CONFUSED FORGETFUL ,NEEDS FREQUENTLY DIRECTIONS ,HIGH FALL RISKS PATIENT IS MEDICATION COMPLIANT. ENCOURAGED PATIENT TO VERBALIZED ANY FEELING OR CONCERN . DENIES SI/HI AND AUDITORY/VISUAL HALLUCINATIONS AT THIS TIME. WILL CONTINUE TO MONITOR Q 15 MINUTES FOR SAFETY AND BEHAVIOR.
[2022-11-14 20:20] VITALS: BP 119/65
[2022-11-14] MEDS: LORAZEPAM 0.5 MG TABLET PO PRN (20:25)
--- NOTE | 2022-11-14 20:27 | NUR ---
RN NOTES: ANXIETY PT. NOTED SCREAMING,RESTLESS VERY ANXIOUS NON REDIREECTABLE PRN ATIVAN 0.5 MG PO GIVEN WILL CONTINUE TO MONITOR.
[2022-11-15] MEDS: Z GUARD REMEDY 4 OZ OINT TP PRN (06:15)
[2022-11-15 08:00] VITALS: BP 120/63
[2022-11-15] MEDS: CEPHALEXIN MONOHYDRATE 500 MG CAPSULE PO SCH ×2 (08:46→20:12)
[2022-11-15] MEDS: ASPIRIN 81 MG TAB.CHEW PO SCH (08:46)
[2022-11-15] MEDS: PANTOPRAZOLE 40 MG TABLET.DR PO SCH (08:47)
[2022-11-15] MEDS: DIVALPROEX SODIUM 125 MG CAP.SPRINK PO SCH ×2 (08:47→16:52)
[2022-11-15] MEDS: MULTIVIT W/MINERALS 1 TAB TABLET PO SCH (08:47)
[2022-11-15] MEDS: PROSOURCE / PROSTAT (PYXIS) 30 ML UDC PO SCH (08:47)
[2022-11-15] MEDS: ASCORBIC ACID 500 MG TABLET PO SCH (08:47)
[2022-11-15] MEDS: DONEPEZIL 5 MG TABLET PO SCH (08:47)
[2022-11-15 16:00] VITALS: BP 126/64
--- NOTE | 2022-11-15 19:30 | NUR ---
RN OPENING NOTES RECEIVED PATIENT AWAKE IN THE RANDI CHAIR. ALERT. NO PAIN NOTED. NO SOB NOTED. NO DISTRESS NOTED. ABLE TO MAKE NEEDS KNOWN. NO DISTRESS NOTED. NO ANXIETY NOTED. ALL SAFETY MEASURES IN PLACE. BED LOCKED IN THE LOWEST POSITION. SIDE RAILS UP TIMES 2. WILL [id number] TO MONITOR CLOSELY.
[2022-11-15 20:28] VITALS: BP 126/67
[2022-11-15] MEDS: LORAZEPAM 0.5 MG TABLET PO PRN (23:39)
--- NOTE | 2022-11-15 23:47 | NUR ---
RN NOTES PRN ATIVAN 0.5 MG PO GIVEN FOR ANXIETY AND TRYING TO GET UP FROM THE BED PER MD ORDER AT 2339.
[2022-11-16 08:00] VITALS: BP 154/78
[2022-11-16] MEDS: DONEPEZIL 5 MG TABLET PO SCH (08:18)
[2022-11-16] MEDS: PANTOPRAZOLE 40 MG TABLET.DR PO SCH (08:18)
[2022-11-16] MEDS: ASPIRIN 81 MG TAB.CHEW PO SCH (08:18)
[2022-11-16] MEDS: DIVALPROEX SODIUM 125 MG CAP.SPRINK PO SCH ×2 (08:19→17:19)
[2022-11-16] MEDS: CEPHALEXIN MONOHYDRATE 500 MG CAPSULE PO SCH ×2 (08:19→20:29)
[2022-11-16] MEDS: ASCORBIC ACID 500 MG TABLET PO SCH (08:19)
[2022-11-16] MEDS: MULTIVIT W/MINERALS 1 TAB TABLET PO SCH (08:19)
[2022-11-16] MEDS: PROSOURCE / PROSTAT (PYXIS) 30 ML UDC PO SCH (09:42)
[2022-11-16 16:00] VITALS: BP 137/74
--- NOTE | 2022-11-16 17:02 | NUR ---
NURSE NOTE: US TECH UP AT BEDSIDE TO DO US OF KIDNEYS ORDERED. PT LAW WELL. WILL CONT TO MONITOR.
[2022-11-16] MEDS: LORAZEPAM 0.5 MG TABLET PO PRN (17:19)
--- NOTE | 2022-11-16 17:19 | NUR ---
NURSE NOTE: PT ANXIOUS AT THIS TIME. BANGING ON TABLE. ATIVAN PO ADMINISTERED ORDERED. PT LAW WELL. WILL CONT TO MONITOR.
--- NOTE | 2022-11-16 18:19 | NUR ---
NURSE NOTE: PT CALM AT THIS TIME. ATIVAN EFFECTIVE. WILL CONT TO MONITOR.
[2022-11-16 19:49] VITALS: BP 114/69
[2022-11-16] MEDS: TEMAZEPAM 7.5 MG CAPSULE PO PRN (21:39)
[2022-11-17 08:00] VITALS: BP 112/66
[2022-11-17] MEDS: LORAZEPAM 0.5 MG TABLET PO PRN (09:10)
[2022-11-17] MEDS: DONEPEZIL 5 MG TABLET PO SCH (09:10)
[2022-11-17] MEDS: ASCORBIC ACID 500 MG TABLET PO SCH (09:10)
[2022-11-17] MEDS: MULTIVIT W/MINERALS 1 TAB TABLET PO SCH (09:10)
[2022-11-17] MEDS: DIVALPROEX SODIUM 125 MG CAP.SPRINK PO SCH ×2 (09:10→16:51)
[2022-11-17] MEDS: ASPIRIN 81 MG TAB.CHEW PO SCH (09:10)
[2022-11-17] MEDS: CEPHALEXIN MONOHYDRATE 500 MG CAPSULE PO SCH ×2 (09:11→21:16)
[2022-11-17] MEDS: PANTOPRAZOLE 40 MG TABLET.DR PO SCH (09:12)
[2022-11-17 16:00] VITALS: BP 126/75
[2022-11-17 20:17] VITALS: BP 128/74
[2022-11-18 08:00] VITALS: BP 154/82
[2022-11-18] MEDS: MULTIVIT W/MINERALS 1 TAB TABLET PO SCH (08:07)
[2022-11-18] MEDS: ASCORBIC ACID 500 MG TABLET PO SCH (08:07)
[2022-11-18] MEDS: PANTOPRAZOLE 40 MG TABLET.DR PO SCH (08:07)
[2022-11-18] MEDS: ASPIRIN 81 MG TAB.CHEW PO SCH (08:07)
[2022-11-18] MEDS: DONEPEZIL 5 MG TABLET PO SCH (08:07)
[2022-11-18] MEDS: DIVALPROEX SODIUM 125 MG CAP.SPRINK PO SCH ×2 (08:07→16:57)
[2022-11-18] MEDS: CEPHALEXIN MONOHYDRATE 500 MG CAPSULE PO SCH (08:07)
[2022-11-18 16:00] VITALS: BP 115/57
--- NOTE | 2022-11-18 19:25 | NUR ---
RN notes Received Pt in the bed resting comfortably. Pt is alert and orientedX1, confused, anxious, disorganized and disoriented. On room air. No SOB. No S/S of distress noted. Reality orientation and encouragement provided. Snack is offered and provided. Safety precautions is maintained. Will continue to monitor for Q 15 mins checks for safety and behavior.
[2022-11-18] MEDS: LORAZEPAM 0.5 MG TABLET PO PRN (20:08)
--- NOTE | 2022-11-18 20:12 | NUR ---
RN notes Pt is feeling anxious, restless and screaming. administered ativan 0.5 mg/po/prn as ordered. safety precautions is maintained. will continue to monitor.
[2022-11-18 21:02] VITALS: BP 126/75
--- NOTE | 2022-11-19 06:17 | NUR ---
RN notes Pt refused am labs. Pt is very combative and non compliant. Explained risks and benefits. Charge nurse is aware and informed.
--- NOTE | 2022-11-19 07:55 | NUR ---
SW Discharge Note: Pt will be discharged to [facility] located at [address] [id number] . Please arrange ambulance at 1PM. Pts son Antonino ([phone]) is aware and agreeable of discharge. Upon discharge, the pt appears to be in a dysphoric mood and presented with a congruent affect. Pt appears to be alert and oriented x2 (place, self). Pt denies both suicidal and homicidal ideation as well as auditory and visual hallucinations. Pt appears to be ambulatory with a steady gait. Pt will be under the care of her psychiatrist, Dr. Magallon, located at [address] [facility] [address] [address]; . Pt will be under the care of director of social services, Dr. Mcdaniel, located at [address] [place] [address] . The choice of vendor form and multidisciplinary exit care form were done, printed, signed, and given to the patient.
[2022-11-19 08:00] VITALS: BP 127/62
[2022-11-19] MEDS: PANTOPRAZOLE 40 MG TABLET.DR PO SCH (08:45)
[2022-11-19] MEDS: ASPIRIN 81 MG TAB.CHEW PO SCH (08:45)
[2022-11-19] MEDS: DIVALPROEX SODIUM 125 MG CAP.SPRINK PO SCH (08:45)
[2022-11-19] MEDS: DONEPEZIL 5 MG TABLET PO SCH (08:45)
[2022-11-19] MEDS: ASCORBIC ACID 500 MG TABLET PO SCH (08:46)
[2022-11-19] MEDS: MULTIVIT W/MINERALS 1 TAB TABLET PO SCH (08:46)
--- NOTE | 2022-11-19 08:49 | NUR ---
Dr. Ceballos gave an order to D/C hold and D/C to [facility] and to follow up with psych and medical doctors. Dr. Ceballos ordered to continue same meds including prn.
--- NOTE | 2022-11-19 14:55 | NUR ---
RN-DISCHARGE NOTES PATIENT HAD A DISCHARGE ORDER FROM DR. GRIJALVA ( PSYCHIATRIST),SARAHI BONILLA ( PLATFORM ATTENDANT) MEDICALLY CLEARED PATIENT FOR DISCHARGE. PATIENT A/O X1-2 DID NOT VERBALIZE SI/HI,DENIES VISUAL/AUDITORY HALLUCINATIONS AT THE TIME OF DISCHARGE.PARTIAL PICTURE WAS TAKEN ON THE SKIN DUE TO PATIENT WAS UNCOOPERATIVE DURING SKIN ASSESSMENT. REPORT WAS GIVEN TO NEON ( FACILITY STAFF).PATIENT LEFT THE UNIT IN STABLE CONDITION,AWAKE,A/O X1-2 NO ACUTE DISTRESS NOTED.RESEARCH ASSOCIATE QUALITY CONTROL QC BY AMBULANCE VIA GURNEY WITH TWO STAFF ASSIST. ALL BELONGINGS WAS GIVEN BACK TO THE PATIENT.
[2022-12-05] MEDS ORDERED: LEUPROLIDE ACETATE 7.5 MG SQ SCH (09:00)
== END 2022-11-19 14:55 | DRG 885 ==
LOC: ER 16:43 → GPS 23:20
PROVIDERS: ADMIT Psychiatry & Neurology Psychosomatic Medicine; ATTEND Nurse Practitioner Acute Care
DX: F39 Unspecified mood [affective] disorder (principal); N17.9 Acute kidney failure, unspecified; F03.94 Unspecified dementia, unspecified severity, with anxiety; F03.93 Unspecified dementia, unspecified severity, with mood disturbance; F03.92 Unspecified dementia, unspecified severity, with psychotic disturbance; N39.0 Urinary tract infection, site not specified; E44.0 Moderate protein-calorie malnutrition; F29 Unspecified psychosis not due to a substance or known physiological condition; I10 Essential (primary) hypertension; M81.0 Age-related osteoporosis without current pathological fracture; Z20.822 Contact with and (suspected) exposure to COVID-19; E78.5 Hyperlipidemia, unspecified; Z95.1 Presence of aortocoronary bypass graft; D69.6 Thrombocytopenia, unspecified; R13.10 Dysphagia, unspecified; R26.9 Unspecified abnormalities of gait and mobility; M47.819 Spondylosis without myelopathy or radiculopathy, site unspecified; I25.10 Atherosclerotic heart disease of native coronary artery without angina pectoris; Z79.899 Other long term (current) drug therapy; Z79.82 Long term (current) use of aspirin; Z87.440 Personal history of urinary (tract) infections; E88.09 Other disorders of plasma-protein metabolism, not elsewhere classified; B96.1 Klebsiella pneumoniae [K. pneumoniae] as the cause of diseases classified elsewhere; Z73.6 Limitation of activities due to disability
CPT/HCPCS: 36415; 71045-TC; 76770-TC; 80048-TC; 80053-TC; 80061-TC; 80076-TC; 81001; 82962-TC; 84484-TC; 85025-TC; 87081-TC; 87086-TC; 92526; 92611-TC; 97112-TC; 97116-TC; 97530-TC; A4223; C9803; G0480; J0696